=== PATIENT | male | born 1945 | race Caucasian/White ===

== ENCOUNTER → 2025-06-10 14:31 | Outpatient (REF) | payer MEDICARE, BC, SELFPAY ==
[2025-06-10 15:40] LABS: Hematocrit 43.9 % (39.0-52.0); Hemoglobin 14.0 g/dL (13.0-18.0); Mean Corp Hgb Conc. 31.9 g/dL (33.0-37.0); Mean Corpuscular Volume 93.2 fL (80.0-94.0); Nucleated Red Blood Cells % 0 % (-); Platelet Count 440 10^3/uL (130-400); Red Cell Dist. Width 12.5 % (11.5-14.5)
[2025-06-10 15:58] LABS: ALT (SGPT) 27 U/L (0-50); AST (SGOT) 24 U/L (17-59); Albumin 4.3 g/dl (3.5-5.0); Alkaline Phosphatase 70 U/L (38-126); Blood Urea Nitrogen 16 mg/dl (9-20); Calcium 9.5 mg/dl (8.4-10.2); Carbon Dioxide 28 mmol/L (22-30); Chloride 104 mmol/L (98-107); Glucose 100 mg/dl (70-99); Potassium 4.3 mmol/L (3.5-5.1); Sodium 137 mmol/L (135-145); Total Protein 7.0 g/dl (6.3-8.2); eGFR > 60.00
== END ==
LOC: REG 14:31
PROVIDERS: ATTENDING PHYSICIAN Surgery; FAMILY PHYSICIAN Nurse Practitioner Gerontology
DX: R10.32 Left lower quadrant pain (principal); R19.09 Other intra-abdominal and pelvic swelling, mass and lump
CPT/HCPCS: 36415; 80053; 85025

== ENCOUNTER → 2025-06-18 08:40 | Outpatient (REF) | payer MEDICARE, BC, SELFPAY | LOC: RAD 08:40 | PROVIDERS: ATTENDING PHYSICIAN Surgery; FAMILY PHYSICIAN Nurse Practitioner Gerontology | DX: R10.32 Left lower quadrant pain (principal); R19.09 Other intra-abdominal and pelvic swelling, mass and lump | CPT/HCPCS: 72193; Q9967 ==

== ENCOUNTER → 2025-06-26 11:42 | Outpatient (REF) | payer MEDICARE, BC, SELFPAY ==
[2025-06-26 12:45] VITALS: BP 146/71; BP_SYST 67
[2025-06-26 13:43] VITALS: BP 140/97
== END ==
LOC: RADI 11:42
PROVIDERS: ATTENDING PHYSICIAN Surgery; FAMILY PHYSICIAN Nurse Practitioner Gerontology
DX: C83.35 Diffuse large B-cell lymphoma, lymph nodes of inguinal region and lower limb (principal); N40.0 Benign prostatic hyperplasia without lower urinary tract symptoms; R97.20 Elevated prostate specific antigen [PSA]
CPT/HCPCS: 36415; 38505; 76942; 84153; 84154; 88305; 88333; 88341; 88342

== ENCOUNTER 2025-07-16 17:09 | Emergency (ER) | payer MEDICARE, BC, SELFPAY ==
[2025-07-16 17:26] VITALS: BP 156/80
[2025-07-16 18:00] LABS: Hematocrit 42.9 % (39.0-52.0); Hemoglobin 14.4 g/dL (13.0-18.0); Mean Corp Hgb Conc. 33.6 g/dL (33.0-37.0); Mean Corpuscular Volume 87.7 fL (80.0-94.0); Nucleated Red Blood Cells % 0 % (-); Platelet Count 279 10^3/uL (130-400); Red Cell Dist. Width 13.2 % (11.5-14.5)
[2025-07-16 18:08] LABS: INR 0.99; PT 12.9 Sec (11.4-14.6)
[2025-07-16 18:09] LABS: APTT 25.4 Sec (23.4-35.0)
[2025-07-16 18:13] LABS: ALT (SGPT) 29 U/L (0-50); AST (SGOT) 31 U/L (17-59); Albumin 4.8 g/dl (3.5-5.0); Alkaline Phosphatase 53 U/L (38-126); Blood Urea Nitrogen 19 mg/dl (9-20); Calcium 9.3 mg/dl (8.4-10.2); Carbon Dioxide 28 mmol/L (22-30); Chloride 106 mmol/L (98-107); Glucose 92 mg/dl (70-99); Potassium 4.4 mmol/L (3.5-5.1); Sodium 137 mmol/L (135-145); Total Protein 7.5 g/dl (6.3-8.2); eGFR > 60.00
[2025-07-16 19:48] VITALS: BP 144/77
[2025-07-16 19:51] VITALS: BMI 32.3
--- NOTE | 2025-07-16 20:01 | ED.GENMED ---
History of Present Illness
General
Chief Complaint: DVT/Possible Blood Clot
Time Seen by Provider: 07/16/25 19:26
History of Present Illness
History of Present Illness:
80-year-old male presents the emergency department for evaluation of left leg swelling and a positive DVT study. 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
region. Noted to have worsening swelling recently and sent for an outpatient ultrasound today that confirmed a DVT of the left iliac and common femoral veins. Denies any paresthesias or severe pain to the left calf. No claudication symptoms.
Review of Systems
Review of Systems
Allergies reviewed?: Yes
All Other Systems: ROS reviewed and negative except as documented in HPI and ROS
Phy Exam
Physical Exam
Physical Exam:
GEN: Well appearing, NAD, WDWN
HEENT: Oral mucosa moist, no scleral icterus
Cardiac: Regular rate
Lung: No respiratory distress, no tachypnea
MSK: No gross deformity or injuries, strong left dorsalis pedis pulse, capillary refill less than 2 seconds, sensation intact diffusely, moderate edema extending to the thigh on the left
Skin: Good color, no pallor or jaundice, no rashes
Neuro: AO x3, moves all extremities freely
Psych: Calm, cooperative
Course
Orders/Labs/Results
Orders:
Orders
07/16/25 17:51
CMP [Comprehensive Metabolic Panel] Urgent
Complete Blood Count/With Diff Urgent
PT/INR [Prothrombin Time] Urgent
PTT Urgent
07/16/25 19:56
Apixaban [Eliquis] 10 mg PO NOW STA
Abnormal Lab Results
07/16/25
17:51
Absolute Monos (auto) 0.7 H 10^3/uL
(0.1-0.6)
07/16/25 17:51
07/16/25 17:51
Vital Signs
Initial and Last Documented VS:
Initial Vital Signs
Temp Pulse Resp BP Pulse Ox
97.6 F 67 18 156/80 97
07/16/25 17:26 07/16/25 17:26 07/16/25 17:26 07/16/25 17:26 07/16/25 17:26
Last Documented Vital Signs
Temp Pulse Resp BP Pulse Ox
97.6 F 72 16 144/77 98
07/16/25 19:49 07/16/25 19:48 07/16/25 19:48 07/16/25 19:48 07/16/25 20:01
MDM/Problems Addressed
MDM/Problems Addressed:
Patient has no symptoms concerning for phlegmasia cerulea dolens, no evidence for arterial compromise. This is likely DVT caused by mass effect from the external iliac lymphadenopathy. Will start on Eliquis
*Pulse Oximetry
SaO2: 98
Oxygen Mode of Delivery: Room air
Patient hypoxic: no
*Critical Care Note
Total Time (30-74mins, 75-104mins- exclusive of procedures): Not Applicable
ED Attending Note
-
Portions of this chart may have been created with voice recognition software.� Occasional wrong word or��sound alike� substitutions may have occurred due to the inherent limitations of voice recognition software.
Discharge Plan
Departure
Patient Disposition: Home (Routine Discharge)
Date of Disposition: 07/16/25
Time of Disposition: 20:03
Patient with high blood pressure during this ER visit?: No
Discharge Problem:
Acute deep vein thrombosis (DVT) of iliac vein
Instructions: Deep Vein Thrombosis (Blood Clots in the Legs) (DC)
Prescriptions:
New
Eliquis 5 mg tablet
5 mg PO BID Qty: 74 0RF
Rx Instructions:
10mg PO BID x 7d then 5mg PO BID
No Action
multivitamin Tablet
1 tab PO DAILY
metformin 500 mg Tablet
500 mg PO DAILY
atorvastatin 20 mg Tablet
20 mg PO HS
aspirin 81 mg Tablet,Delayed Release (Dr/Ec)
81 mg PO DAILY
ketoconazole 2 % Cream
1 applic TOPICAL DAILY
Referrals:
Nathanael Faulkner CRNP [Family Provider, General]
Interventions
Interventions:
*Risk Screen - Suicide Last Done: 07/16/25 17:30
*General Assessment Last Done: 07/16/25 19:52
*Neglect/Abuse Screening Last Done: 07/16/25 20:51
*ED COVID-19 Vaccine History Last Done: 07/16/25 19:52
*ED Influenza Vaccine History Last Done: 07/16/25 19:52
[facility] Fall Risk Assessment Tool Last Done: 07/16/25 19:52
*Nursing Disposition Last Done: 07/16/25 20:46
ED- Cardiac Assessment Last Done: 07/16/25 19:52
ED- Pulmonary Assessment Last Done: 07/16/25 19:52
ED-Peripheral Vascular Assessment Last Done: 07/16/25 19:52
ED-Skin Assessment Last Done: 07/16/25 19:52
Discharge Date and Time
Discharge Date/Time: 07/16/25 20:51
Print Language: BULGARIAN
[2025-07-16] MEDS: ELIQUIS 10 MG PO (20:37)
== END 2025-07-16 20:51 | disposition home or self-care (01) ==
LOC: EMR 17:09
PROVIDERS: Emergency Medicine; EMERGENCY PHYSICIAN Emergency Medicine; FAMILY PHYSICIAN Nurse Practitioner Gerontology
DX: I82.412 Acute embolism and thrombosis of left femoral vein (principal); I82.422 Acute embolism and thrombosis of left iliac vein
CPT/HCPCS: 99284; 36415; 80053; 83615; 85025; 85610; 85730; 93971

== ENCOUNTER → 2025-07-23 08:18 | Outpatient (REF) | payer MEDICARE, BC, SELFPAY ==
[2025-07-23 08:45] LABS: Hematocrit 41.2 % (39.0-52.0); Hemoglobin 13.9 g/dL (13.0-18.0); Mean Corp Hgb Conc. 33.7 g/dL (33.0-37.0); Mean Corpuscular Volume 88.6 fL (80.0-94.0); Nucleated Red Blood Cells % 0 % (-); Platelet Count 248 10^3/uL (130-400); Red Cell Dist. Width 13.0 % (11.5-14.5)
[2025-07-23] MEDS: ATIVAN 0.5 MG PO (09:08)
[2025-07-23 09:11] VITALS: BP 147/78; BP_SYST 74; BMI 28.1
[2025-07-23 11:16] VITALS: BP 160/83
== END ==
LOC: RADI 08:18
PROVIDERS: ATTENDING PHYSICIAN Internal Medicine Hematology & Oncology; REFERRING PHYSICIAN Physician Assistant
DX: C83.30 Diffuse large B-cell lymphoma, unspecified site (principal)
CPT/HCPCS: 36415; 38222; 77012; 85025; 88305; 88311; 88312; 88313

== ENCOUNTER → 2025-07-30 08:54 | Outpatient (REF) | payer MEDICARE, BC, SELFPAY | LOC: HWRCS 08:54 | PROVIDERS: ATTENDING PHYSICIAN Internal Medicine Hematology & Oncology; FAMILY PHYSICIAN Internal Medicine Geriatric Medicine | DX: C83.30 Diffuse large B-cell lymphoma, unspecified site (principal) | CPT/HCPCS: 93306 ==